=== PATIENT | female | born 1970 | race Caucasian/White ===

== ENCOUNTER 2020-03-30 13:33 | Emergency (ER) | payer MEDICARE, OTHER ==
[~2020-03-30 13:33] MED LIST: ALPRAZOLAM0.5 MG PO; AMBIEN10 MG PO; CEFUROXIME500 MG PO; CYANOCOBAL1000 MCG/1 INJ; DALIRESP500 MCG PO; ECOTRIN81 MG PO; FERROUS SULFAT325 M1 PO; FLEXERIL 10 MG10 MG PO; FLONASE 0.05% N16 GM; IBUPROFEN800 MG PO; KEFLEX CAP 500500 MG PO; LEXAPRO10 MG PO; LOPRESSOR50 MG PO; MAGIC MOUTHWASH PO; MAGNESIUM400 MG PO; MEDROL DOSEPAK 24 MG PO; NAPROSYN500 MG PO; NASONEX17 GM; NEURONTIN 300300 MG PO; NEURONTIN 400400 MG PO; NEURONTIN400 MG PO; NORCO 10-325 T1 EACH PO; NORCO 5-325 TA1 EACH PO; ONDANSETRON ODT8 MG PO; PERCOCET 10-321 EACH PO; PHENERGAN 25 MG25 M1 PO; PROTONIX40 MG PO; PYRIDIUM100 MG PO; SINGULAIR10 MG PO; SYMBICORT 16010.2 GM INH; SYNTHROID112 MCG PO; TORADOL 10 MG T10 MG PO; VITAMIN C 500500 MG PO; VITAMIN C500 M1 PO; VITAMIN D250000 UNIT PO; VITAMIN D325 MC6 PO; Voltaren Gel 1 % TOP; XANAX1 MG PO; ZANTAC150 MG PO; ZITHROMAX250 MG PO
[2020-03-30 15:18] LABS: HEMOGLOBIN 10.1 gm/dl (12.3-15.3); RED BLOOD COUNT 4.64 M/UL (4.00-5.10); WHITE BLOOD COUNT 6.8 K/UL (4.5-11.0)
[2020-03-30 15:48] LABS: BUN/CREATININE RATIO 23 (0-10)
[2020-03-30] MEDS ORDERED: PROTONIX40 MG PO (19:41)
== END 2020-03-30 22:01 | disposition home or self-care (01) ==
LOC: ER1 13:33
PROVIDERS: Emergency Medicine
DX: R10.13 Epigastric pain (principal); I49.01 Ventricular fibrillation; I25.10 Atherosclerotic heart disease of native coronary artery without angina pectoris; I50.9 Heart failure, unspecified; F17.200 Nicotine dependence, unspecified, uncomplicated; Z98.84 Bariatric surgery status; Z95.810 Presence of automatic (implantable) cardiac defibrillator; Z86.79 Personal history of other diseases of the circulatory system; Z88.2 Allergy status to sulfonamides; Z88.6 Allergy status to analgesic agent; Z88.8 Allergy status to other drugs, medicaments and biological substances; Z79.899 Other long term (current) drug therapy
CPT/HCPCS: 71045; 80053; 81001; 82550; 82553; 83605; 83690; 83874; 83880; 84484; 84703; 85025; 85379; 93005; 96374; 96375; 96376; 99284; J2270; J2405; Q9967

== ENCOUNTER 2020-05-20 11:21 | Inpatient (IN) | payer MEDICARE, OTHER ==
[~2020-05-20] VITALS: Ht 167.6 cm; Wt 95.8 kg
[2020-05-20 12:30] LABS: HEMOGLOBIN 7.8 gm/dl (12.3-15.3); RED BLOOD COUNT 3.45 M/UL (4.00-5.10); WHITE BLOOD COUNT 14.1 K/UL (4.5-11.0)
[2020-05-20] MEDS ORDERED: NEURONTIN600 MG PO (17:37)
[2020-05-20] MEDS ORDERED: PHENERGAN 25 MG25 M1 PO (17:41)
[2020-05-20] MEDS ORDERED: ALBUTEROL2.5 MG/3 M INH (17:41)
[2020-05-20] MEDS ORDERED: SOMA350 MG PO (17:42)
[2020-05-20] MEDS ORDERED: MYCOSTATIN100000 UTS PO (17:43)
[2020-05-20] MEDS ORDERED: ALL DAY ALLERGY10 M2 PO (17:43)
[2020-05-20] MEDS ORDERED: PROZAC20 MG PO (17:44)
[2020-05-20] MEDS ORDERED: FUROSEMIDE40 MG PO (17:45)
[2020-05-20] MEDS ORDERED: K-DUR TAB 20 M20 MEQ PO (17:46)
[2020-05-20] MEDS ORDERED: FLONASE 0.05% N16 GM (17:47)
[2020-05-20] MEDS ORDERED: ANORO ELLIPTA1 EACH INH (17:48)
[2020-05-20] MEDS ORDERED: AMBIEN10 MG PO (17:50)
[2020-05-21 02:48] LABS: HEMOGLOBIN 7.7 gm/dl (12.3-15.3); RED BLOOD COUNT 3.41 M/UL (4.00-5.10); WHITE BLOOD COUNT 12.8 K/UL (4.5-11.0)
[2020-05-22 09:14] LABS: HBSAG SCREEN Negative (Negative); HEP A AB, IGM Negative (Negative); HEP B CORE AB, IGM Negative (Negative); HEP C VIRUS AB <0.1 (0.0-0.9)
[2020-05-23 06:01] LABS: BUN/CREATININE RATIO 32 (0-10)
[2020-05-24 06:19] LABS: BUN/CREATININE RATIO 33 (0-10)
[2020-05-24 17:11] LABS: FINAL INTERPRETATION Negative (.); HIV 1 AB Negative (Negative); HIV 2 AB Negative (Negative)
[2020-05-25 05:06] LABS: BUN/CREATININE RATIO 30 (0-10)
--- NOTE | 2020-05-25 09:33 | NUR ---
PATIENT OFF O2 DESATED TO 88 AFTER JUST STANDING AND MOVING AROUND THE BED.
[2020-05-26 06:32] LABS: HEMOGLOBIN 8.8 gm/dl (12.3-15.3); RED BLOOD COUNT 3.96 M/UL (4.00-5.10); WHITE BLOOD COUNT 6.7 K/UL (4.5-11.0)
[2020-05-26 07:18] LABS: BUN/CREATININE RATIO 35 (0-10)
[2020-05-27 04:54] LABS: BUN/CREATININE RATIO 41 (0-10)
== END 2020-05-27 14:04 | disposition home health service (06) | DRG 871 ==
LOC: ER1 11:21 → CDU 16:59 → MED SURG 4 16:59
PROVIDERS: Internal Medicine; Internal Medicine Gastroenterology; Physician Assistant; Physician Assistant Medical; ADMIT Internal Medicine
DX: A41.9 Sepsis, unspecified organism (principal); J96.01 Acute respiratory failure with hypoxia; J18.9 Pneumonia, unspecified organism; K76.3 Infarction of liver; I50.33 Acute on chronic diastolic (congestive) heart failure; N17.9 Acute kidney failure, unspecified; B37.0 Candidal stomatitis; E87.2 Acidosis; I11.0 Hypertensive heart disease with heart failure; D72.829 Elevated white blood cell count, unspecified; Z20.822 Contact with and (suspected) exposure to COVID-19; I27.20 Pulmonary hypertension, unspecified; K76.1 Chronic passive congestion of liver; F17.210 Nicotine dependence, cigarettes, uncomplicated; M51.36 Other intervertebral disc degeneration, lumbar region; K76.0 Fatty (change of) liver, not elsewhere classified; J44.9 Chronic obstructive pulmonary disease, unspecified; E03.9 Hypothyroidism, unspecified; K21.9 Gastro-esophageal reflux disease without esophagitis; F41.9 Anxiety disorder, unspecified; Z79.899 Other long term (current) drug therapy; I25.2 Old myocardial infarction; Z95.810 Presence of automatic (implantable) cardiac defibrillator; Z98.84 Bariatric surgery status; Z90.49 Acquired absence of other specified parts of digestive tract; Z88.6 Allergy status to analgesic agent; Z88.2 Allergy status to sulfonamides; Z88.8 Allergy status to other drugs, medicaments and biological substances; Z80.7 Family history of other malignant neoplasms of lymphoid, hematopoietic and related tissues; Z84.89 Family history of other specified conditions
CPT/HCPCS: ECHO; 36415; 36600; 71045; 71250; 72131; 76705; 80048; 80053; 80074; 80076; 80202; 80307; 81001; 82550; 82553; 82803; 83605; 83690; 83735; 83874; 83880; 84484; 85025; 85027; 85610; 85652; 85730; 86140; 86701; 86702; 87040; 93005; 93306; 94640; 94664; 94760; 96365; 96366; 96367; 96372; 96375; 96376; 97161; 99285; J0692; J1650; J1940; J2405; J2543; J2550; J3370; J7030; J7070; U0002; U0003

== ENCOUNTER 2020-06-15 06:01 | Emergency (ER) | payer MEDICARE, OTHER ==
[~2020-06-15 06:01] MED LIST changes: +ALBUTEROL2.5 MG/3 M INH; +ALL DAY ALLERGY10 M2 PO; +ANORO ELLIPTA1 EACH INH; +FUROSEMIDE40 MG PO; +K-DUR TAB 20 M20 MEQ PO; +MYCOSTATIN100000 UTS PO; +NEURONTIN600 MG PO; +PROZAC20 MG PO; +SOMA350 MG PO
[2020-06-15 07:38] LABS: HEMOGLOBIN 8.2 gm/dl (12.3-15.3); RED BLOOD COUNT 3.64 M/UL (4.00-5.10); WHITE BLOOD COUNT 4.8 K/UL (4.5-11.0)
[2020-06-15 07:44] LABS: BUN/CREATININE RATIO 19 (0-10)
[2020-06-15] MEDS ORDERED: LASIX40 MG PO (19:08)
== END 2020-06-15 20:43 | disposition home or self-care (01) ==
LOC: ER1 06:01
PROVIDERS: Emergency Medicine
DX: I50.9 Heart failure, unspecified (principal); Z20.822 Contact with and (suspected) exposure to COVID-19; F17.210 Nicotine dependence, cigarettes, uncomplicated; Z88.6 Allergy status to analgesic agent
CPT/HCPCS: 0240U; 36600; 71045; 80053; 82550; 82553; 82803; 83735; 83874; 83880; 84439; 84443; 84484; 85025; 93005; 96374; 96375; 99285; J1100; J1170; J1642; J1940; J2270; J2405; Q9967

== ENCOUNTER 2020-11-23 02:30 | Inpatient (IN) | payer MEDICARE ==
[~2020-11-23] VITALS: Ht 167.6 cm; Wt 97.1 kg
[~2020-11-23 02:30] MED LIST changes: -ALBUTEROL2.5 MG/3 M INH; -ANORO ELLIPTA1 EACH INH; +CYANOCOBAL1000 MCG/1 IM; -CYANOCOBAL1000 MCG/1 INJ; -FUROSEMIDE40 MG PO; +LASIX40 MG PO; -PROZAC20 MG PO
[2020-11-23 03:20] LABS: HEMOGLOBIN 12.3 gm/dl (12.3-15.3); RED BLOOD COUNT 4.27 M/UL (4.00-5.10); WHITE BLOOD COUNT 7.6 K/UL (4.5-11.0)
[2020-11-23 03:51] LABS: BUN/CREATININE RATIO 19 (0-10)
[2020-11-23] MEDS ORDERED: MONTELUKAST SOD10 MG PO (11:10)
[2020-11-23] MEDS ORDERED: NYSTATIN60 GM TOP (11:11)
[2020-11-23] MEDS ORDERED: VENTOLIN HFA 66.7 GM INH (11:12)
[2020-11-23] MEDS ORDERED: OXYCODONE HCL10 MG PO (11:15)
[2020-11-23] MEDS ORDERED: MINIPRES CAP 2 M2 MG PO (11:16)
[2020-11-23] MEDS ORDERED: ATORVASTATIN CA80 MG PO (11:17)
[2020-11-23] MEDS ORDERED: NARCAN4 MG (11:20)
[2020-11-23] MEDS ORDERED: BRILINTA90 MG PO (11:21)
[2020-11-23] MEDS ORDERED: TIZANIDINE HCL4 MG PO (11:23)
[2020-11-23] MEDS ORDERED: VITAMIN D21250 MCG PO (13:55)
[2020-11-23] MEDS ORDERED: VOLTAREN EC 7575 MG PO (16:31)
[2020-11-23] MEDS ORDERED: DIAZEPAM5 MG PO (16:37)
[2020-11-23] MEDS ORDERED: ACYCLOVIR30 GM TOP (16:40)
[2020-11-23] MEDS ORDERED: ACYCLOVIR800 MG PO (16:46)
[2020-11-23] MEDS ORDERED: PHENERGAN 25 MG25 M1 PO (16:48)
[2020-11-23] MEDS ORDERED: QUETIAPINE FUMA25 MG PO (16:49)
[2020-11-23] MEDS ORDERED: FERROUS SULFAT325 M2 PO (16:51)
[2020-11-23 16:52] LABS: KPC-CARBAPENEM-RESISTANCE GENE Not Detected (Negative); mecA (METHICILLIN RESIST GENE Not Detected (Negative)
[2020-11-23 16:53] LABS: ACINETOBACTER BAUMANNII Not Detected (Negative); CANDIDA ALBICANS Not Detected (Negative); CANDIDA KRUSEI Not Detected (Negative); CANDIDA TROPICALIS Not Detected (Negative); ESCHERICHIA COLI Not Detected (Negative); HAEMOPHILUS INFLUENZAE Not Detected (Negative); KLEBSIELLA OXYTOCA Not Detected (Negative); KLEBSIELLA PNEUMONIAE Not Detected (Negative); PROTEUS Not Detected (Negative); PSEUDOMONAS AERUGINOSA Not Detected (Negative); SERRATIA MARCESANS Not Detected (Negative); STAPHYLOCOCCUS Not Detected (Negative); STAPHYLOCOCCUS AUREUS Not Detected (Negative); STREP AGALACTIAE (GROUP B) Not Detected (Negative); STREP PYOGENES (GROUP A) Not Detected (Negative); STREPTOCOCCUS Not Detected (Negative); vanA/B (VANCOMYCIN RESIST GENE Not Detected (Negative)
[2020-11-23 17:35] LABS: ENTEROCOCCUS DETECTED (Negative)
[2020-11-23] MEDS ORDERED: ALBUTEROL2.5 MG/3 M INH (17:41)
[2020-11-23] MEDS ORDERED: PROZAC20 MG PO (17:44)
[2020-11-23] MEDS ORDERED: FUROSEMIDE40 MG PO (17:45)
[2020-11-23] MEDS ORDERED: FLONASE 0.05% N16 GM (17:47)
[2020-11-23] MEDS ORDERED: ANORO ELLIPTA1 EACH INH (17:48)
[2020-11-23] MEDS ORDERED: AMBIEN10 MG PO (17:50)
[2020-11-24 09:59] LABS: HEMOGLOBIN 12.2 gm/dl (12.3-15.3); RED BLOOD COUNT 4.24 M/UL (4.00-5.10); WHITE BLOOD COUNT 8.5 K/UL (4.5-11.0)
[2020-11-24 10:34] LABS: BUN/CREATININE RATIO 12 (0-10)
[2020-11-25 04:03] LABS: HEMOGLOBIN 12.8 gm/dl (12.3-15.3); RED BLOOD COUNT 4.3 M/UL (4.00-5.10); WHITE BLOOD COUNT 7.5 K/UL (4.5-11.0)
[2020-11-25 04:33] LABS: BUN/CREATININE RATIO 8 (0-10)
--- NOTE | 2020-11-25 05:54 | NUR ---
165/81 hr 71 gave lopressor 25mg
[2020-11-26 07:07] LABS: HEMOGLOBIN 13.9 gm/dl (12.3-15.3); RED BLOOD COUNT 4.84 M/UL (4.00-5.10); WHITE BLOOD COUNT 7.8 K/UL (4.5-11.0)
[2020-11-26 07:35] LABS: BUN/CREATININE RATIO 10 (0-10)
[2020-11-26 15:37] LABS: MONONUCLEAR CELLS 41 %; POLYMORPHONUCLEAR 59 %; RBC (AUTOMATED) 58800 10^6; WBC (AUTOMATED) 357 10^3
--- NOTE | 2020-11-26 20:33 | NUR ---
1899 PT BP 89/54 THE NURSE HAD ORDER FOR 1L BOLUS AND RECHECK. ON RECHECK THE BEST BP I COULD GET MANUAL IS 82/48. CALLED DR HEALY AND SHE FIRST ORDERED ANOTHER LITER BOLUS BUT I LET HER KNOW THE PT HAS A HISTORY OF HEART FAILURE. SHE GAVE THE ORDER TO START ON LEVOPHED, I EXPLAINED THE PT WOULD NEED TO BE MOVED OFF THIS FLOOR AND SHE GAVE AN ORDER TO MOVE THE PT. I'VE TRIED REACHING HOUSE BUT UNABLE TO AT THIS TIME. WILL PUT ORDER IN TO TRANSFER AND AWAITING A BED.
--- NOTE | 2020-11-26 20:45 | NUR ---
2039 DR HEALY CAME TO THE FLOOR AND CANCELLED THE 1L BOLUS; CHANGE TO N/S @ 100ML/HR AND ORDERED A LEVOPHED DRIP. HOUSE IS ON THE FLOOR AND IS IN PROCESS OF GETTING A BED. FLUIDS WILL BEGIN AND AND CHARGE NURSE IS COMING TO START THE LEVOPHED DRIP AND MONITOR PT UNTIL SHE IS MOVED TO PCU
--- NOTE | 2020-11-28 15:55 | NUR ---
PT C/O PAIN, RE EXPLAINED PERAMATERS ON PAIN MED AND OFFERED TYLENOL OR TORODOL AND PT REFUSES, STATES IT DOES NOT HELP HER. REQUEST TO BE SENT TO [facility], DR. TILLMAN NOTIFIED. DR. TILLMAN ALSO NOTIFIED PT C/O INCREASED PAIN AND REFUSES OTHER PRN PAIN MEDS WITH NO NEW ORDERS NOTED.
[2020-11-29 04:43] LABS: WHITE BLOOD COUNT 6.6 K/UL (4.5-11.0)
[2020-11-29 04:48] LABS: HEMOGLOBIN 11.8 gm/dl (12.3-15.3); RED BLOOD COUNT 3.94 M/UL (4.00-5.10)
[2020-12-02 09:53] LABS: RED BLOOD COUNT 3.29 M/UL (4.00-5.10); WHITE BLOOD COUNT 4.3 K/UL (4.5-11.0)
[2020-12-02 09:59] LABS: HEMOGLOBIN 9.7 gm/dl (12.3-15.3)
[2020-12-03 08:49] LABS: RED BLOOD COUNT 3.3 M/UL (4.00-5.10)
[2020-12-03] MEDS ORDERED: FLORANEX GRANU1 EACH PO (15:47)
[2020-12-03] MEDS ORDERED: KEPPRA 250 MG250 MG PO (15:47)
[2020-12-03] MEDS ORDERED: BUTALB-ACETAMI1 EAC1 PO (15:47)
[2020-12-03] MEDS ORDERED: VALIUM 5 MG TAB5 MG PO (15:47)
[2020-12-03] MEDS ORDERED: ASPIRIN EC81 MG PO (15:47)
[2020-12-03] MEDS ORDERED: NICOTINE PATCH1 EAC1 TD (15:47)
[2020-12-03] MEDS ORDERED: OXYCODONE HCL5 MG PO (15:53)
--- NOTE | 2020-12-03 16:57 | NUR ---
WENT TO GIVE PT ORDERED DILAUDID IV AND PORT LEAKED AND PT UPSET STATING NOW MY DOSE IS WASTED AND I DIDN'T GET ANY OF IT (I CAN TELL). PORT DC'D AND NEW PORT STARTED 20GA. 1 INCH. WITH GOOD BLOOD RETURN AND FLUSHES WELL. DR. RODRIGUEZ NOTIFIED AND STATES ORDER ANOTHER DILAUDID IV PRIOR TO PT GOING HOME
== END 2020-12-03 18:03 | disposition home health service (06) | DRG 871 ==
LOC: ER1 02:30 → ZOBSOF 07:37 → M/S 07:37 → PROG CARE 07:37 → CDU 07:38 → M/S 18:57 → PROG CARE 11-26 22:42 → M/S 12-03 11:54
PROVIDERS: Internal Medicine; Physician Assistant; ADMIT Internal Medicine
PROC: 0S993ZZ Drainage of Right Hip Joint, Percutaneous Approach (ICD-10-PCS; 2020-11-23)
PROC: B51B1ZA Fluoroscopy of Right Lower Extremity Veins using Low Osmolar Contrast, Guidance (ICD-10-PCS; 2020-11-23)
PROC: B24BZZ4 Ultrasonography of Heart with Aorta, Transesophageal (ICD-10-PCS; principal; 2020-11-29)
DX: A41.81 Sepsis due to Enterococcus (principal); I67.83 Posterior reversible encephalopathy syndrome; R57.1 Hypovolemic shock; Z20.822 Contact with and (suspected) exposure to COVID-19; N17.0 Acute kidney failure with tubular necrosis; R65.21 Severe sepsis with septic shock; M87.851 Other osteonecrosis, right femur; R56.9 Unspecified convulsions; N28.1 Cyst of kidney, acquired; I25.10 Atherosclerotic heart disease of native coronary artery without angina pectoris; I11.0 Hypertensive heart disease with heart failure; I27.20 Pulmonary hypertension, unspecified; E03.9 Hypothyroidism, unspecified; M16.11 Unilateral primary osteoarthritis, right hip; K21.9 Gastro-esophageal reflux disease without esophagitis; R94.31 Abnormal electrocardiogram [ECG] [EKG]; E87.6 Hypokalemia; G47.00 Insomnia, unspecified; D50.9 Iron deficiency anemia, unspecified; E66.9 Obesity, unspecified; J44.9 Chronic obstructive pulmonary disease, unspecified; G89.4 Chronic pain syndrome; I34.0 Nonrheumatic mitral (valve) insufficiency; F41.9 Anxiety disorder, unspecified; E78.5 Hyperlipidemia, unspecified; I25.5 Ischemic cardiomyopathy; F32.9 Major depressive disorder, single episode, unspecified; D64.9 Anemia, unspecified; F17.210 Nicotine dependence, cigarettes, uncomplicated; Z95.5 Presence of coronary angioplasty implant and graft; Z95.810 Presence of automatic (implantable) cardiac defibrillator; Z98.84 Bariatric surgery status; Z87.11 Personal history of peptic ulcer disease; Z88.1 Allergy status to other antibiotic agents; Z88.2 Allergy status to sulfonamides; Z88.8 Allergy status to other drugs, medicaments and biological substances; Z81.8 Family history of other mental and behavioral disorders; Z80.8 Family history of malignant neoplasm of other organs or systems; Z86.73 Personal history of transient ischemic attack (TIA), and cerebral infarction without residual deficits; Z90.49 Acquired absence of other specified parts of digestive tract; Z79.01 Long term (current) use of anticoagulants; Z79.82 Long term (current) use of aspirin; Z68.36 Body mass index [BMI] 36.0-36.9, adult; I25.2 Old myocardial infarction
CPT/HCPCS: ECHO; 36415; 70450; 71045; 73700; 80048; 80053; 80202; 80307; 81001; 82043; 82550; 82553; 82570; 83605; 83615; 83690; 83735; 83880; 84132; 84156; 84484; 85025; 85379; 85610; 85652; 85730; 86140; 87040; 87070; 87077; 87086; 87150; 87186; 87205; 89050; 89051; 89060; 93306; 94640; 94760; 96374; 96375; 99285; A6212; J0290; J1170; J1885; J1953; J2060; J2185; J2405; J2765; J3370; J7030; J7070; Q9967; U0002

== ENCOUNTER 2021-01-08 07:00 | Inpatient (IN) | payer MEDICARE ==
[~2021-01-08] VITALS: Ht 167.6 cm; Wt 84.4 kg
[~2021-01-08 07:00] MED LIST changes: +ACYCLOVIR30 GM TOP; +ACYCLOVIR800 MG PO; +ALBUTEROL2.5 MG/3 M INH; +ANORO ELLIPTA1 EACH INH; +ASPIRIN EC81 MG PO; +ATORVASTATIN CA80 MG PO; +BRILINTA90 MG PO; +BUTALB-ACETAMI1 EAC1 PO; +DIAZEPAM5 MG PO; +FERROUS SULFAT325 M2 PO; +FLORANEX GRANU1 EACH PO; +FUROSEMIDE40 MG PO; -K-DUR TAB 20 M20 MEQ PO; +KEPPRA 250 MG250 MG PO; +MINIPRES CAP 2 M2 MG PO; +MONTELUKAST SOD10 MG PO; +NARCAN4 MG; +NICOTINE PATCH1 EAC1 TD; +NYSTATIN60 GM TOP; +OXYCODONE HCL10 MG PO; +OXYCODONE HCL5 MG PO; +POTASSIUM CHLO20 ME2 PO; +PROZAC20 MG PO; +QUETIAPINE FUMA25 MG PO; +TIZANIDINE HCL4 MG PO; +VALIUM 5 MG TAB5 MG PO; +VENTOLIN HFA 66.7 GM INH; +VITAMIN D21250 MCG PO; +VOLTAREN EC 7575 MG PO
[2021-01-08 07:42] LABS: RED BLOOD COUNT 3.26 M/UL (4.00-5.10); WHITE BLOOD COUNT 9.8 K/UL (4.5-11.0)
[2021-01-08 08:20] LABS: BUN/CREATININE RATIO 18 (0-10)
[2021-01-09 03:08] LABS: HEMOGLOBIN 9.4 gm/dl (12.3-15.3); RED BLOOD COUNT 3.12 M/UL (4.00-5.10)
[2021-01-09 03:12] LABS: WHITE BLOOD COUNT 6.3 K/UL (4.5-11.0)
[2021-01-09 04:19] LABS: BUN/CREATININE RATIO 20 (0-10)
[2021-01-09] MEDS ORDERED: OXYCODONE HCL10 MG PO (09:06)
[2021-01-09] MEDS ORDERED: FUROSEMIDE40 MG PO (09:13)
[2021-01-09] MEDS ORDERED: DIAZEPAM5 MG PO (09:13)
[2021-01-09] MEDS ORDERED: FLUCONAZOLE150 MG PO (09:14)
[2021-01-09] MEDS ORDERED: AMPICILLIN IM (09:15)
[2021-01-09] MEDS ORDERED: NYSTATIN60 GM TP (09:16)
[2021-01-09] MEDS ORDERED: ONDANSETRON HCL4 MG PO (09:16)
[2021-01-09] MEDS ORDERED: TYLENOL EXTRA500 MG PO (09:16)
[2021-01-09] MEDS ORDERED: PROAIR HFA8.5 GM INH (09:18)
[2021-01-09] MEDS ORDERED: LEVETIRACETAM750 MG PO (09:27)
[2021-01-10 06:06] LABS: BUN/CREATININE RATIO 14 (0-10)
[2021-01-11 09:25] LABS: HEMOGLOBIN 9.9 gm/dl (12.3-15.3); RED BLOOD COUNT 3.33 M/UL (4.00-5.10)
[2021-01-11 09:26] LABS: WHITE BLOOD COUNT 3.1 K/UL (4.5-11.0)
[2021-01-11 11:01] LABS: BUN/CREATININE RATIO 16 (0-10)
[2021-01-12 04:37] LABS: RED BLOOD COUNT 3.33 M/UL (4.00-5.10); WHITE BLOOD COUNT 3.4 K/UL (4.5-11.0)
[2021-01-12 05:05] LABS: BUN/CREATININE RATIO 25 (0-10)
[2021-01-12 17:10] LABS: ADENOVIRUS F 40/41 Not Detected (Negative); ASTROVIRUS Not Detected (Negative); CAMPYLOBACTER Not Detected (Negative); CLOSTRIDIUM DIFFICILE TOX A/B Not Detected (Negative); CRYPTOSPORIDIUM Not Detected (Negative); E.COLI 0157 Not Detected (Negative); ENTAMOEBA HISTOLYTICA Not Detected (Negative); ENTEROAGGREGATIVE E.COLI (EAEC Not Detected (Negative); ENTEROPATHOGENIC E.COLI (EPEC) Not Detected (Negative); ENTEROTOXIGENIC E.COLI (ETEC) Not Detected (Negative); GIARDIA LAMBLIA Not Detected (Negative); NOROVIRUS GI/GII Not Detected (Negative); PLESIOMONAS SHIGELLOIDES Not Detected (Negative); ROTOVIRUS A Not Detected (Negative); SALMONELLA Not Detected (Negative); SAPOVIRUS Not Detected (Negative); SHIG/ENTEROINVAS.ECOLI (EIEC) Not Detected (Negative); SHIGA-LIK TOX.PRO.E.COLI (STEC Not Detected (Negative); VIBRIO Not Detected (Negative); VIBRIO CHOLERAE Not Detected (Negative); YERSINIA ENTEROCOLITICA Not Detected (Negative)
[2021-01-13 08:22] LABS: HEMOGLOBIN 10.5 gm/dl (12.3-15.3); RED BLOOD COUNT 3.45 M/UL (4.00-5.10)
[2021-01-13 08:23] LABS: WHITE BLOOD COUNT 4.6 K/UL (4.5-11.0)
[2021-01-13 09:23] LABS: BUN/CREATININE RATIO 20 (0-10)
[2021-01-13] MEDS ORDERED: FLORANEX GRANU1 EACH PO (12:06)
[2021-01-13] MEDS ORDERED: CUBICIN 500 MG500 MG INJ (12:06)
--- NOTE | 2021-01-13 17:27 | NUR ---
ATTEMPTED TO CALL REPORT TO [facility], NO ANSWER. RN LEFT CALL BACK NUMBER AND INSTRUCTED PATIENT TO NOTIFY HOME HEALTH OF ARRIVAL AND WENT OVER DISCHARGE INSTRUCTIONS WITH PATIENT. PATIENT VERBALIZED UNDERSTANDING.
== END 2021-01-13 17:00 | disposition home health service (06) | DRG 554 ==
LOC: ER1 07:00 → MED SURG 4 13:00 → PROG CARE 13:00 → MED SURG 4 01-09 10:31
PROVIDERS: Emergency Medicine; Internal Medicine; Student in an Organized Health Care Education/Training Program; ADMIT Internal Medicine
DX: M87.851 Other osteonecrosis, right femur (principal); G89.4 Chronic pain syndrome; F41.9 Anxiety disorder, unspecified; G47.00 Insomnia, unspecified; G40.909 Epilepsy, unspecified, not intractable, without status epilepticus; J44.9 Chronic obstructive pulmonary disease, unspecified; D63.8 Anemia in other chronic diseases classified elsewhere; T50.915A Adverse effect of multiple unspecified drugs, medicaments and biological substances, initial encounter; F17.210 Nicotine dependence, cigarettes, uncomplicated; E03.9 Hypothyroidism, unspecified; I95.2 Hypotension due to drugs; I25.10 Atherosclerotic heart disease of native coronary artery without angina pectoris; Z95.5 Presence of coronary angioplasty implant and graft; Z95.810 Presence of automatic (implantable) cardiac defibrillator; Z85.72 Personal history of non-Hodgkin lymphomas; Z95.818 Presence of other cardiac implants and grafts; Z90.49 Acquired absence of other specified parts of digestive tract; Z88.2 Allergy status to sulfonamides; Z88.8 Allergy status to other drugs, medicaments and biological substances; Z81.8 Family history of other mental and behavioral disorders; Z91.048 Other nonmedicinal substance allergy status; Z79.899 Other long term (current) drug therapy; Z23 Encounter for immunization
CPT/HCPCS: 36415; 36600; 71045; 73502; 80048; 80053; 80202; 81001; 82550; 82803; 83036; 83540; 83550; 83605; 83735; 83880; 84100; 85007; 85025; 85027; 85652; 86140; 87040; 87086; 87507; 90686; 94640; 94664; 94760; 96374; 96375; 99284; G0008; J0878; J1170; J1650; J2185; J2270; J2405; J3370; J7030; J7050; J7070; Q0177; U0002

== ENCOUNTER 2021-03-14 13:00 | Emergency (ER) | payer MEDICARE ==
[~2021-03-14 13:00] MED LIST changes: +AMPICILLIN IM; +CUBICIN 500 MG500 MG INJ; +FLUCONAZOLE150 MG PO; +LEVETIRACETAM750 MG PO; +NYSTATIN60 GM TP; +ONDANSETRON HCL4 MG PO; +PROAIR HFA8.5 GM INH; +TYLENOL EXTRA500 MG PO
[2021-03-14 14:44] LABS: HEMOGLOBIN 11.4 gm/dl (12.3-15.3); RED BLOOD COUNT 3.73 M/UL (4.00-5.10); WHITE BLOOD COUNT 8.4 K/UL (4.5-11.0)
[2021-03-14 15:07] LABS: BUN/CREATININE RATIO 31 (0-10)
[2021-03-14] MEDS ORDERED: LASIX40 MG PO (22:19)
== END 2021-03-14 23:05 | disposition home or self-care (01) ==
LOC: ER1 13:00
PROVIDERS: Physician Assistant
DX: I96 Gangrene, not elsewhere classified (principal); J44.9 Chronic obstructive pulmonary disease, unspecified; F11.20 Opioid dependence, uncomplicated; D64.9 Anemia, unspecified; F17.200 Nicotine dependence, unspecified, uncomplicated; E78.5 Hyperlipidemia, unspecified; I50.9 Heart failure, unspecified; Z98.84 Bariatric surgery status; Z88.2 Allergy status to sulfonamides; Z88.6 Allergy status to analgesic agent; Z88.8 Allergy status to other drugs, medicaments and biological substances; Z95.5 Presence of coronary angioplasty implant and graft
CPT/HCPCS: 71045; 80053; 81001; 82550; 82553; 83874; 83880; 84484; 85025; 93005; 99285

== ENCOUNTER 2021-11-05 13:37 | Inpatient (IN) | payer MEDICARE ==
[~2021-11-05] VITALS: Ht 167.6 cm; Wt 104.3 kg
[2021-11-05 15:48] LABS: HEMOGLOBIN 9.8 gm/dl (12.3-15.3); RED BLOOD COUNT 3.34 M/UL (4.00-5.10); WHITE BLOOD COUNT 6.7 K/UL (4.5-11.0)
[2021-11-05 16:15] LABS: BUN/CREATININE RATIO 29 (0-10)
[2021-11-06 02:36] LABS: HEMOGLOBIN 9.4 gm/dl (12.3-15.3); RED BLOOD COUNT 3.21 M/UL (4.00-5.10); WHITE BLOOD COUNT 6.4 K/UL (4.5-11.0)
[2021-11-06] MEDS ORDERED: BUSPIRONE HCL10 MG PO (10:56)
[2021-11-06] MEDS ORDERED: CYANOCOBAL1000 MCG/1 INJ (11:00)
[2021-11-06] MEDS ORDERED: CYCLOBENZAPRINE5 MG PO (11:01)
[2021-11-06] MEDS ORDERED: OXYCODONE-ACET1 EACH PO (11:16)
[2021-11-06] MEDS ORDERED: SUCRALFATE1 GM PO (11:19)
[2021-11-06 11:49] LABS: BORDETELLA PARAPERTUSSIS Not Detected (Not Detectd); BORDETELLA PERTUSSIS Not Detected (Not Detectd); CHLAMYDIA PNEUMONIAE Not Detected (Not Detectd); CORONAVIRUS HKU1 Not Detected (Not Detectd); CORONAVIRUS NL63 Not Detected (Not Detectd); CORONAVIRUS OC43 Not Detected (Not Detectd); CORONOAVIRUS 229E Not Detected (Not Detectd); HUMAN METAPNEUMOVIRUS Not Detected (Not Detectd); INFLUENZA A Not Detected (Not Detectd); INFLUENZA B Not Detected (Not Detectd); MYCOPLASMA PNEUMONIAE Not Detected (Not Detectd); PARAINFLUENZA VIRUS 1 Not Detected (Not Detectd); PARAINFLUENZA VIRUS 2 Not Detected (Not Detectd); PARAINFLUENZA VIRUS 3 Not Detected (Not Detectd); PARAINFLUENZA VIRUS 4 Not Detected (Not Detectd); RESPIRATORY SYNCYTIAL VIRUS Not Detected (Not Detectd)
[2021-11-06 14:25] LABS: HUMAN RHINOVIRUS/ENTEROVIRUS DETECTED (Not Detectd); SARS-CoV-2 NOT DETECTED (Not Detectd)
[2021-11-08 11:20] LABS: HEMOGLOBIN 11.2 gm/dl (12.3-15.3); WHITE BLOOD COUNT 6.6 K/UL (4.5-11.0)
[2021-11-08 11:21] LABS: RED BLOOD COUNT 3.87 M/UL (4.00-5.10)
[2021-11-08 11:37] LABS: BUN/CREATININE RATIO 28 (0-10)
[2021-11-09] MEDS ORDERED: NICOTINE PATCH1 EACH TOP (11:20)
[2021-11-09] MEDS ORDERED: LISINOPRIL2.5 MG PO (11:31)
== END 2021-11-09 15:11 | disposition home or self-care (01) | DRG 291 ==
LOC: ER1 13:37 → M/S 18:32 → CDU 18:32 → M/S 21:30
PROVIDERS: Internal Medicine Infectious Disease; Physician Assistant; ADMIT Internal Medicine
PROC: B24BZZZ Ultrasonography of Heart with Aorta (ICD-10-PCS; principal; 2021-11-06)
DX: I11.0 Hypertensive heart disease with heart failure (principal); I50.33 Acute on chronic diastolic (congestive) heart failure; J96.21 Acute and chronic respiratory failure with hypoxia; Z20.822 Contact with and (suspected) exposure to COVID-19; N17.0 Acute kidney failure with tubular necrosis; J44.1 Chronic obstructive pulmonary disease with (acute) exacerbation; I47.2 Ventricular tachycardia; D50.9 Iron deficiency anemia, unspecified; F17.210 Nicotine dependence, cigarettes, uncomplicated; I48.91 Unspecified atrial fibrillation; I45.81 Long QT syndrome; I27.20 Pulmonary hypertension, unspecified; F41.9 Anxiety disorder, unspecified; Z96.649 Presence of unspecified artificial hip joint; K21.9 Gastro-esophageal reflux disease without esophagitis; F32.A Depression, unspecified; I25.10 Atherosclerotic heart disease of native coronary artery without angina pectoris; Z95.810 Presence of automatic (implantable) cardiac defibrillator; Z98.84 Bariatric surgery status; Z95.5 Presence of coronary angioplasty implant and graft; Z79.01 Long term (current) use of anticoagulants; Z99.81 Dependence on supplemental oxygen; Z88.6 Allergy status to analgesic agent; Z88.5 Allergy status to narcotic agent; Z88.2 Allergy status to sulfonamides; Z88.8 Allergy status to other drugs, medicaments and biological substances; Z98.890 Other specified postprocedural states; Z98.891 History of uterine scar from previous surgery; Z80.9 Family history of malignant neoplasm, unspecified; I25.2 Old myocardial infarction
CPT/HCPCS: ECHO; 36415; 36600; 71045; 71046; 80053; 82550; 82553; 82728; 82803; 83540; 83550; 83605; 83735; 83880; 84443; 84484; 85007; 85025; 85027; 87633; 93005; 93306; 94640; 94664; 94760; 96374; 96375; 99285; J0456; J0696; J1650; J1756; J1885; J1940; J2920; J3475; J7030; U0002